=== PATIENT | female | born 1955 | race Caucasian/White ===

== ENCOUNTER 2023-05-12 04:25 | Day surgery (SDC) | payer MEDICARE, OTHER ==
[2023-05-12 14:45] VITALS: BP 168/92
[2023-05-12] MEDS ORDERED: TRAZ100 PO (16:06)
[2023-05-12] MEDS ORDERED: METO100 PO (16:07)
[2023-05-12] MEDS ORDERED: GABA300 PO (16:08)
[2023-05-12] MEDS ORDERED: ACYC400 PO (16:08)
[2023-05-12] MEDS ORDERED: ESTRADIOL0.5 MG PO (16:09)
[2023-05-12] MEDS ORDERED: MONT10T PO (16:09)
[2023-05-12] MEDS ORDERED: FAMO20 PO (16:10)
[2023-05-12] MEDS ORDERED: HYDHCL25 PO (16:11)
[2023-05-12] MEDS ORDERED: TIMO.5OPSO BOTHEYES (16:11)
[2023-05-12] MEDS ORDERED: ALLEGRA ALLERG180 MG PO (16:11)
[2023-05-12] MEDS ORDERED: Triamcinolone A15 G3 TOP (16:12)
[2023-05-12] MEDS ORDERED: EPIPEN0.3 MG/0.3 IM (16:12)
[2023-05-12] MEDS ORDERED: Xolair150 MG SC (16:13)
== END 2023-05-12 14:55 | disposition home or self-care (01) ==
LOC: ATC 04:25
DX: L50.8 Other urticaria (principal); Z79.899 Other long term (current) drug therapy
CPT/HCPCS: 96372; J2357

== ENCOUNTER 2023-06-14 02:04 | Day surgery (SDC) | payer MEDICARE, OTHER ==
[~2023-06-14 02:04] MED LIST: ACYC400 PO; ALLEGRA ALLERG180 MG PO; EPIPEN0.3 MG/0.3 IM; ESTRADIOL0.5 MG PO; FAMO20 PO; GABA300 PO; HYDHCL25 PO; METO100 PO; MONT10T PO; TIMO.5OPSO BOTHEYES; TRAZ100 PO; Triamcinolone A15 G3 TOP; Xolair150 MG SC
[2023-06-14 16:38] VITALS: BP 132/74
== END 2023-06-14 16:51 | disposition home or self-care (01) ==
LOC: ATC 02:04
DX: L50.8 Other urticaria (principal)
CPT/HCPCS: 96372; J2357

== ENCOUNTER 2023-07-12 00:28 | Day surgery (SDC) | payer MEDICARE, OTHER ==
[2023-07-12 13:54] VITALS: BP 134/94
== END 2023-07-12 14:04 | disposition home or self-care (01) ==
LOC: ATC 00:28
DX: L50.8 Other urticaria (principal)
CPT/HCPCS: 96372; J2357

== ENCOUNTER 2023-08-12 02:30 | Day surgery (SDC) | payer MEDICARE, OTHER ==
[2023-08-12 15:16] VITALS: BP 136/96
== END 2023-08-12 15:33 | disposition home or self-care (01) ==
LOC: ATC 02:30
DX: L50.8 Other urticaria (principal); Z88.1 Allergy status to other antibiotic agents; Z88.2 Allergy status to sulfonamides; Z88.8 Allergy status to other drugs, medicaments and biological substances; Z79.899 Other long term (current) drug therapy
CPT/HCPCS: 96372; J2357

== ENCOUNTER 2023-08-20 11:39 | Day surgery (SDC) | payer MEDICARE, OTHER ==
[~2023-08-20] VITALS: Ht 165.1 cm; Wt 205.0 kg
[2023-08-20 15:09] VITALS: BP 137/97
--- NOTE | 2023-08-20 17:57 | NUR ---
08/20/23 175 Maximiliano Gaytan IV REMOVED INTACT. SITE WNL.
== END 2023-08-20 17:30 | disposition home or self-care (01) ==
LOC: ORSCSDS 11:39
PROVIDERS: Podiatrist Foot & Ankle Surgery
PROC: 0YBN0ZZ Excision of Left Foot, Open Approach (ICD-10-PCS; principal; 2023-08-20 12:45)
DX: M89.8X7 Other specified disorders of bone, ankle and foot (principal); M79.672 Pain in left foot; I10 Essential (primary) hypertension; Z79.899 Other long term (current) drug therapy
CPT/HCPCS: J0171; J1100; J2001; J2250; J2405; J2795; J3010; J7120

== ENCOUNTER 2023-10-07 01:16 | Day surgery (SDC) | payer MEDICARE, OTHER ==
[2023-10-07] MEDS ORDERED: Omalizumab 150 MG Syringe SC SCH (06:55)
[2023-10-07 14:06] VITALS: BP 140/88
== END 2023-10-07 14:27 | disposition home or self-care (01) ==
LOC: ATC 01:16
DX: L50.8 Other urticaria (principal); Z79.899 Other long term (current) drug therapy
CPT/HCPCS: 96372; J2357

== ENCOUNTER → 2023-10-08 | Outpatient (CLI) | payer MEDICARE, OTHER ==
[2023-10-10 07:08] LABS: BILIRUBIN, TOTAL 0.5 mg/dL (0.0-1.2); CALCIUM, SERUM 10.1 mg/dL (8.7-10.3); CREATININE, SERUM 0.79 mg/dL (0.57-1.00); GLOBULIN, TOTAL 2.3 g/dL (1.5-4.5); PROTEIN, TOTAL, SERUM 6.8 g/dL (6.0-8.5)
== END | disposition home or self-care (01) ==
LOC: LAB SHORT 18:19 → LAB 18:19
PROVIDERS: Nurse Practitioner Family
DX: R10.11 Right upper quadrant pain (principal)
CPT/HCPCS: 80053

== ENCOUNTER → 2023-12-28 | Outpatient (CLI) | payer MEDICARE, OTHER | END | disposition home or self-care (01) | LOC: LAB 08:18 → LAB SHORT 08:18 | DX: L72.8 Other follicular cysts of the skin and subcutaneous tissue (principal) | CPT/HCPCS: 88305 ==

== ENCOUNTER 2024-01-03 00:11 | Day surgery (SDC) | payer MEDICARE, OTHER ==
[2024-01-03 16:21] VITALS: BP 138/82
== END 2024-01-03 16:31 | disposition home or self-care (01) ==
LOC: ATC 00:11
DX: L50.8 Other urticaria (principal); Z79.899 Other long term (current) drug therapy

== ENCOUNTER → 2024-02-15 | Outpatient (CLI) | payer MEDICARE, OTHER ==
[~2024-02-15] MED LIST changes: +OZEMPIC1 MG/0.72 SC
== END | disposition home or self-care (01) ==
LOC: LAB SHORT 18:04 → LAB 18:04
DX: R31.0 Gross hematuria (principal)
CPT/HCPCS: 87086

== ENCOUNTER 2024-02-29 00:54 | Day surgery (SDC) | payer MEDICARE, OTHER ==
[2024-02-29] MEDS ORDERED: Omalizumab 150 MG Syringe SC SCH (07:00)
[2024-02-29 14:15] VITALS: BP 160/90
== END 2024-02-29 14:07 | disposition home or self-care (01) ==
LOC: ATC 00:54
DX: L50.8 Other urticaria (principal); Z88.8 Allergy status to other drugs, medicaments and biological substances
CPT/HCPCS: 96372; J2357

== ENCOUNTER 2024-03-28 01:40 | Day surgery (SDC) | payer MEDICARE, OTHER ==
[2024-03-28] MEDS ORDERED: Omalizumab 150 MG Syringe SC SCH (07:05)
[2024-03-28 16:05] VITALS: BP 124/84
== END 2024-03-28 16:17 | disposition home or self-care (01) ==
LOC: ATC 01:40
DX: L50.8 Other urticaria (principal); Z79.899 Other long term (current) drug therapy
CPT/HCPCS: 96372; J2357

== ENCOUNTER 2024-04-25 02:10 | Day surgery (SDC) | payer MEDICARE, OTHER ==
[2024-04-25] MEDS ORDERED: Omalizumab 150 MG Syringe SC SCH (07:15)
[2024-04-25 11:27] VITALS: BP 128/92
== END 2024-04-25 11:42 | disposition home or self-care (01) ==
LOC: ATC 02:10
DX: L50.8 Other urticaria (principal)
CPT/HCPCS: 96372; J2357

== ENCOUNTER 2024-05-26 01:18 | Day surgery (SDC) | payer MEDICARE, OTHER ==
[2024-05-26] MEDS ORDERED: Omalizumab 150 MG Syringe SC SCH (06:50)
[2024-05-26 14:15] VITALS: BP 130/90
== END 2024-05-26 14:18 | disposition home or self-care (01) ==
LOC: ATC 01:18
DX: L50.8 Other urticaria (principal); Z79.899 Other long term (current) drug therapy
CPT/HCPCS: 96372; J2357

== ENCOUNTER 2024-07-03 00:14 | Day surgery (SDC) | payer MEDICARE, OTHER ==
[2024-07-03] MEDS ORDERED: Omalizumab 150 MG Syringe SC SCH (07:20)
[2024-07-03 15:10] VITALS: BP 132/64
== END 2024-07-03 15:10 | disposition home or self-care (01) ==
LOC: ATC 00:14
DX: L50.8 Other urticaria (principal); Z79.899 Other long term (current) drug therapy
CPT/HCPCS: 96372; J2357

== ENCOUNTER 2024-08-02 07:59 | Day surgery (SDC) | payer MEDICARE, OTHER ==
[2024-08-02] MEDS ORDERED: Omalizumab 150 MG Syringe SC SCH (08:25)
[2024-08-02 14:24] VITALS: BP 110/90
== END 2024-08-02 14:35 | disposition home or self-care (01) ==
LOC: ATC 07:59
DX: L50.8 Other urticaria (principal); Z79.899 Other long term (current) drug therapy
CPT/HCPCS: 96372; J2357

== ENCOUNTER 2024-08-31 04:24 | Day surgery (SDC) | payer MEDICARE, OTHER ==
[2024-08-31] MEDS ORDERED: Omalizumab 150 MG Syringe SC SCH (06:50)
[2024-08-31 14:24] VITALS: BP 140/90
== END 2024-08-31 14:26 | disposition home or self-care (01) ==
LOC: ATC 04:24
DX: L50.8 Other urticaria (principal); Z79.899 Other long term (current) drug therapy
CPT/HCPCS: 96372; J2357

== ENCOUNTER 2024-09-29 03:18 | Day surgery (SDC) | payer MEDICARE, OTHER ==
[2024-09-29] MEDS ORDERED: Omalizumab 150 MG Syringe SC SCH ×2 (06:00→07:00)
[2024-09-29 16:10] VITALS: BP 150/90
== END 2024-09-29 16:19 | disposition home or self-care (01) ==
LOC: ATC 03:18
DX: L50.8 Other urticaria (principal); K21.9 Gastro-esophageal reflux disease without esophagitis; Z88.2 Allergy status to sulfonamides; Z79.899 Other long term (current) drug therapy; Z88.8 Allergy status to other drugs, medicaments and biological substances
CPT/HCPCS: 96372; J2357

== ENCOUNTER 2024-10-27 03:04 | Day surgery (SDC) | payer OTHER, MEDICARE ==
[2024-10-27] MEDS ORDERED: Omalizumab 150 MG Syringe SC SCH (07:00)
[2024-10-27 17:00] VITALS: BP 160/92
== END 2024-10-27 17:12 | disposition home or self-care (01) ==
LOC: ATC 03:04
DX: L50.8 Other urticaria (principal); I10 Essential (primary) hypertension; K21.9 Gastro-esophageal reflux disease without esophagitis; Z88.2 Allergy status to sulfonamides; Z88.8 Allergy status to other drugs, medicaments and biological substances; Z79.899 Other long term (current) drug therapy
CPT/HCPCS: 96372; J2357

== ENCOUNTER 2024-11-24 04:20 | Day surgery (SDC) | payer OTHER, MEDICARE ==
[2024-11-24] MEDS ORDERED: Omalizumab 150 MG Syringe SC SCH (07:15)
[2024-11-24 17:36] VITALS: BP 146/92
== END 2024-11-24 17:50 | disposition home or self-care (01) ==
LOC: ATC 04:20
DX: L50.8 Other urticaria (principal); I10 Essential (primary) hypertension; K21.9 Gastro-esophageal reflux disease without esophagitis; Z88.2 Allergy status to sulfonamides; Z88.1 Allergy status to other antibiotic agents; Z79.899 Other long term (current) drug therapy
CPT/HCPCS: 96372; J2357

== ENCOUNTER 2024-12-22 03:12 | Day surgery (SDC) | payer OTHER, MEDICARE ==
[2024-12-22] MEDS ORDERED: Omalizumab 150 MG Syringe SC SCH (06:50)
== END 2024-12-22 17:00 | disposition home or self-care (01) ==
LOC: ATC 03:12
DX: L50.8 Other urticaria (principal); I10 Essential (primary) hypertension; K21.9 Gastro-esophageal reflux disease without esophagitis; E66.09 Other obesity due to excess calories; Z68.33 Body mass index [BMI] 33.0-33.9, adult; Z79.899 Other long term (current) drug therapy
CPT/HCPCS: 96372; J2357

== ENCOUNTER 2025-03-17 01:18 | Day surgery (SDC) | payer OTHER, MEDICARE ==
[2025-03-17] MEDS ORDERED: Omalizumab 150 MG Syringe SC SCH (08:10)
[2025-03-17 13:10] VITALS: BP 101/70
== END 2025-03-17 13:25 | disposition home or self-care (01) ==
LOC: ATC 01:18
DX: L50.8 Other urticaria (principal); I10 Essential (primary) hypertension; K21.9 Gastro-esophageal reflux disease without esophagitis; E66.09 Other obesity due to excess calories; E66.811 Obesity, class 1; Z68.33 Body mass index [BMI] 33.0-33.9, adult; Z79.890 Hormone replacement therapy; Z79.899 Other long term (current) drug therapy; Z88.1 Allergy status to other antibiotic agents; Z88.2 Allergy status to sulfonamides; Z88.8 Allergy status to other drugs, medicaments and biological substances; Z91.018 Allergy to other foods; Z91.048 Other nonmedicinal substance allergy status
CPT/HCPCS: 96372; J2357

== ENCOUNTER 2025-05-29 02:44 | Day surgery (SDC) | payer OTHER, MEDICARE ==
[2025-05-29] MEDS ORDERED: Omalizumab 150 MG Syringe SC SCH (07:00)
[2025-05-29 16:50] VITALS: BP 146/100
== END 2025-05-29 16:55 | disposition home or self-care (01) ==
LOC: ATC 02:44
DX: L50.8 Other urticaria (principal); I10 Essential (primary) hypertension; K21.9 Gastro-esophageal reflux disease without esophagitis; H40.1131 Primary open-angle glaucoma, bilateral, mild stage; E66.811 Obesity, class 1; Z68.33 Body mass index [BMI] 33.0-33.9, adult; Z79.899 Other long term (current) drug therapy; Z88.2 Allergy status to sulfonamides; Z88.8 Allergy status to other drugs, medicaments and biological substances; Z88.1 Allergy status to other antibiotic agents; Z91.09 Other allergy status, other than to drugs and biological substances
CPT/HCPCS: 96372; J2357

== ENCOUNTER 2025-06-26 01:54 | Day surgery (SDC) | payer OTHER, MEDICARE ==
[2025-06-26] MEDS ORDERED: Omalizumab 150 MG Syringe SC SCH (06:00)
== END 2025-06-26 18:00 | disposition home or self-care (01) ==
LOC: ATC 01:54
DX: L50.8 Other urticaria (principal); Z88.2 Allergy status to sulfonamides; Z88.8 Allergy status to other drugs, medicaments and biological substances; Z88.1 Allergy status to other antibiotic agents; Z91.018 Allergy to other foods
CPT/HCPCS: 96372; J2357

== ENCOUNTER 2025-07-24 01:31 | Day surgery (SDC) | payer OTHER, MEDICARE ==
[2025-07-24] MEDS ORDERED: Omalizumab 150 MG Syringe SC SCH (06:00)
== END 2025-07-24 16:56 | disposition home or self-care (01) ==
LOC: ATC 01:31
DX: J39.8 Other specified diseases of upper respiratory tract (principal)
CPT/HCPCS: 96372; J2357